=== PATIENT | male | born 1985 | race Two or more races ===

== ENCOUNTER 2019-12-22 04:05 | Emergency (ER) | payer MEDICAID ==
[~2019-12-22] VITALS: Ht 180.3 cm; Wt 99.8 kg
[2019-12-22] MEDS ORDERED: methylPREDNISolone SOD SUCC 125 MG/2 ML VL IV ONE (04:45)
[2019-12-22 04:51] VITALS: BP 143/89
== END 2019-12-22 05:02 | disposition home or self-care (01) ==
LOC: ER 04:05
DX: L50.9 Urticaria, unspecified (principal); R19.7 Diarrhea, unspecified
CPT/HCPCS: 96374; 99283; J2930

== ENCOUNTER 2021-01-10 08:09 | Emergency (ER) | payer MEDICAID ==
[~2021-01-10] VITALS: Ht 180.3 cm; Wt 99.8 kg
[2021-01-10 11:55] VITALS: BP 135/82
== END 2021-01-10 12:04 | disposition home or self-care (01) ==
LOC: ER 08:09
DX: T15.91XA Foreign body on external eye, part unspecified, right eye, initial encounter (principal); X58.XXXA Exposure to other specified factors, initial encounter; Y93.89 Activity, other specified; Y92.89 Other specified places as the place of occurrence of the external cause; Y99.8 Other external cause status